=== PATIENT | female | born 1925 | race Caucasian/White ===

== ENCOUNTER 2017-04-29 10:53 | Emergency (ER) | payer MEDICARE, OTHER ==
--- NOTE | ~2017-04-29 | CR127 ---
[facility] A Service [facility] RADIOLOGY TEXT RESULTS PATIENT: VERONICA STYLES LOCATION: SED : [birth year] UNIT #: [id number] AGE: [address]: Aby Robertson PAC SEX: F ORDER DR: [id number] [place] [id number] E MR#: [id number] Acc #: [id number] NAME: VERONICA STYLES : 1925 SEX: F STUDY DATE/TIME: 04/29/2017 11:21 UNIT: SED ROOM: STUDY DESCRIPTION: CR Foot Complete Min 3 View Rt Attending Physician: Ruiz High Ordering Physician: Ruiz High Primary Care Physician: Maritza Grigsby M.D. MEDICAL IMAGING REPORT This report is preliminary unless electronic signature is present. EXAM Right foot. HISTORY Right foot pain after falling this morning. TECHNIQUE Three views of the foot were obtained. FINDINGS Three views of the foot show chronic ossification at the medial malleolus from an old fracture that has healed. There are advanced degenerative changes at the first MTP joint with joint space narrowing. There are mild degenerative changes at the other interphalangeal joints. There is no evidence of fracture or foreign body. No acute bony abnormalities are seen. IMPRESSION Advanced degenerative changes at the first MTP joint. No acute bony abnormalities are seen. No fracture noted. Dictated by... Richie Teague M.D. THIS IS AN ELECTRONICALLY VERIFIED REPORT Richie Teague M.D. at 04/29/2017 3:46 PM RLF/isabel [facility] A Service [facility] RADIOLOGY TEXT RESULTS PATIENT: VERONICA STYLES LOCATION: SED : [birth year] UNIT #: [id number] AGE: [address]: Aby Robertson PAC SEX: F ORDER DR: TD: 04/29/2017 15:17 JOB #: [id number] MEDICAL IMAGING REPORT Page 1 of 1
--- NOTE | ~2017-04-29 | CR141 ---
[facility] A Service [facility] RADIOLOGY TEXT RESULTS PATIENT: VERONICA STYLES LOCATION: SED : [birth year] UNIT #: [id number] AGE: [address]: Aby Robertson SEX: F ORDER DR: [id number] [address] [address] [id number] E MR#: [id number] Acc #: [id number] NAME: VERONICA STYLES : 1925 SEX: F STUDY DATE/TIME: 04/29/2017 11:14 UNIT: SED ROOM: STUDY DESCRIPTION: CR Hand Min 3 Views Lt Attending Physician: Ruiz High Ordering Physician: Ruiz High Primary Care Physician: Maritza Grigsby M.D. MEDICAL IMAGING REPORT This report is preliminary unless electronic signature is present. EXAM Left hand, 3 views, 04/29/17, 1114 hours. CLINICAL HISTORY 89-year-old woman who fell this morning when stepping down the step, and miss judging the step. Hand pain. COMPARISON None. FINDINGS AP, lateral and oblique views are performed. There is a ring on the index finger which the patient could not remove for this exam. There is overall diffuse osteopenia. Distal radius and ulna appear normal. There is osteoarthritis at the intercarpal bones and the first carpometacarpal joint. Metacarpals are intact. There is osteoarthritis at the DIP joints greater than PIP joints. No fracture or dislocation. IMPRESSION There is diffuse generalized osteopenia with osteoarthritis. There is no acute fracture. Dictated by... Radha Waters M.D. THIS IS AN ELECTRONICALLY VERIFIED REPORT Radha Waters M.D. at 04/30/2017 6:57 PM Muna TD: 04/29/2017 15:23 JOB #: [id number] [facility] A Service of [facility] RADIOLOGY TEXT RESULTS PATIENT: VERONICA STYLES LOCATION: [facility] #: [id number] : [birth year] UNIT #: [id number] AGE: [address]: Aby Robertson PAC SEX: F ORDER DR: MEDICAL IMAGING REPORT Page 1 of 1
--- NOTE | ~2017-04-29 | CR20 ---
[facility] A Service of [facility] RADIOLOGY TEXT RESULTS PATIENT: VERONICA STYLES LOCATION: SED : [birth year] UNIT #: [id number] AGE: [address]: Aby Robertson PAC SEX: F ORDER DR: [id number] [place] [id number] E MR#: [id number] Acc #: [id number] NAME: VERONICA STYLES : 1925 SEX: F STUDY DATE/TIME: 04/29/2017 11:21 UNIT: SED ROOM: STUDY DESCRIPTION: CR Ankle Min 3 Views Lt Attending Physician: Ruiz High Ordering Physician: Ruiz High Primary Care Physician: Maritza Grigsby M.D. MEDICAL IMAGING REPORT This report is preliminary unless electronic signature is present. EXAM Left ankle. HISTORY Left ankle pain after falling this morning. TECHNIQUE Three views of the ankle were obtained. FINDINGS Small osteochondral defects are seen at the dome of the talus. This is related to chronic degenerative change. The ankle mortise is symmetric. No fractures are seen. IMPRESSION No fracture noted. Dictated by... Richie Teague M.D. THIS IS AN ELECTRONICALLY VERIFIED REPORT Richie Teague M.D. at 04/29/2017 3:46 PM RLF/isabel TD: 04/29/2017 15:31 JOB #: [id number] MEDICAL IMAGING REPORT [facility] A Service [facility] RADIOLOGY TEXT RESULTS PATIENT: VERONICA STYLES LOCATION: SED : [birth year] UNIT #: [id number] AGE: [address]: Aby Robertson PAC SEX: F ORDER DR: Page 1 of 1
[~2017-04-29 10:53] MED LIST: ACCUPRIL PO; ACCUPRIL10 MG PO; ACETAMINOPHEN650 M3 PO; ALBUTEROL HFA INH; ALPRAZOLAM; ALPRAZOLAM PO; AMIODARONE PO; AMITRYPTYLINE PO; AMOXICILLIN500 M1 PO; ASPIRIN PO; ATENOLOL PO; AUGMENTIN XR; AUGMENTIN875 MG PO; AZITHROMYCIN250 MG PO; CARDIZEM CD PO; CARDIZEM CD180 M1 PO; CELEXA PO; CELEXA20 MG; CELEXA20 MG PO; CIPRO PO; CLARITHROMYCIN500 MG PO; COUMADIN PO; COUMADIN2.5 MG; COUMADIN2.5 MG PO; DILTIAZEM 24HR180 M2 PO; DOXYCYCLINE150 MG PO; ERYTHROMYCIN500 MG PO; FLEXERIL10 MG PO; HCTZ PO; HYDROCHLOROTH12.5 M1 PO; HYDROCHLOROTH12.5 MG PO; KCL PO; KLOR-CON PO; LEVOTHYROXINE50 MC1 PO; LOPRESSOR PO; MACROBID100 M1 PO; MEDI-MECLIZINE25 M1 PO; MEDROL DOSEPAK4 MG PO; METOPROLOL SUCC25 MG PO; MICROZIDE12.5 M1 PO; NAPROSYN250 M1 PO; NAPROSYN375 MG PO; NAPROXEN PO; NORVASC PO; NORVASC10 MG PO; OMEPRAZOLE20 M1 PO; OMNICEF300 M1 PO; PACERONE100 MG; PACERONE100 MG PO; PREMARIN PO; PREMARIN0.3 MG; PREMARIN0.3 MG PO; PROTONIX PO; PYLERA CAPSULE1 CAP PO; PYRIDIUM PO; RYTHMOL PO; SYNTHROID PO; SYNTHROID25 MCG PO; TESSALON200 MG PO; TOPROL XL50 MG PO; VIBRAMYCIN100 M1 PO; VICODIN 5/1 TAB 5/50 PO; ZITHROMAX1 G/PKT PO; ZOCOR PO; ZOCOR10 MG; ZOCOR10 MG PO; ZOFRAN8 MG PO; [UNRECOGNIZED DRUG - REMARK]
== END 2017-04-29 12:37 | disposition home or self-care (01) ==
LOC: SED 10:53
DX: S60.512A Abrasion of left hand, initial encounter (principal); M25.572 Pain in left ankle and joints of left foot; I48.91 Unspecified atrial fibrillation; F41.9 Anxiety disorder, unspecified; K21.9 Gastro-esophageal reflux disease without esophagitis; I10 Essential (primary) hypertension; W18.40XA Slipping, tripping and stumbling without falling, unspecified, initial encounter; Y92.89 Other specified places as the place of occurrence of the external cause
CPT/HCPCS: 73130; 73610; 73630; 99284

== ENCOUNTER 2017-07-02 11:02 | Emergency (ER) | payer MEDICARE, OTHER ==
--- NOTE | ~2017-07-02 | CR72 ---
[facility] A Service of [facility] RADIOLOGY TEXT RESULTS PATIENT: VERONICA STYLES LOCATION: SED : [birth year] UNIT #: [id number] AGE: [address]: Ayde Berger MD SEX: F ORDER DR: [id number] [address] [address] [id number] E MR#: [id number] Acc #: [id number] NAME: VERONICA STYLES : 1925 SEX: F STUDY DATE/TIME: 07/02/2017 11:23 UNIT: SED ROOM: STUDY DESCRIPTION: CR Chest Single View Portable Attending Physician: Ayde Berger M.D. Ordering Physician: Ayde Berger M.D. Primary Care Physician: Maritza Grigsby M.D. MEDICAL IMAGING REPORT This report is preliminary unless electronic signature is present. EXAM Portable chest INDICATION Mid chest pain since this morning. FINDINGS A portable view of the chest was obtained. There are low lung volumes. The right hemidiaphragm is elevated. The lungs appear clear. IMPRESSION No change. No active disease. Elevation of the right hemidiaphragm. Dictated by... Castillo Henderson M.D. THIS IS AN ELECTRONICALLY VERIFIED REPORT Castillo Henderson M.D. at 07/02/2017 2:49 PM PEYTON/ruslan TD: 07/02/2017 14:03 JOB #: [id number] MEDICAL IMAGING REPORT Page 1 of 1
--- NOTE | ~2017-07-02 | EKG ---
PATIENT: VERONICA STYLES UNIT #: [id number] Ventricular Rate: 107 BPM Atrial Rate: 129 BPM QRS Duration: 82 ms Q-T Interval: 306 ms QTC Calculation(Bezet): 408 ms Calculated R [place]: -5 degrees Calculated T [place]: -19 degrees Diagnosis Line: Atrial fibrillation with rapid ventricular Diagnosis Line: response Diagnosis Line: Nonspecific ST abnormality , probably digitalis Diagnosis Line: effect Diagnosis Line: Abnormal ECG Diagnosis Line: When compared with ECG of 31-AUG-2016 09:09, Diagnosis Line: Nonspecific T wave abnormality, improved in Diagnosis Line: Inferior leads Diagnosis Line: Confirmed by ROSALIO HERNANDEZ MD ([id number]) on Diagnosis Line: 07/11/2017 9:55:55 PM INTERPRETING : MELVIN
[2017-07-02] MEDS ORDERED: ASPIRIN81 MG PO (11:20)
[2017-07-02 11:40] LABS: BASOPHIL# 0.1 X10e3 (0-0.3); BASOPHIL% 0.7 % (0-2.5); EOSINOPHIL# 0.1 X10e3 (0-0.7); EOSINOPHIL% 1.4 % (0.0-7.0); HEMATOCRIT 40.9 % (35.0-45.0); HEMOGLOBIN 13.9 gm/dL (12.0-16.0); LYMPHOCYTE# 0.8 X10e3 (1.0-3.5); LYMPHOCYTE% 9.7 % (17.0-45.0); MEAN CELL VOLUME 94.3 FL (83-96); MEAN PLATELET VOLUME 7.5 FL (6.5-11.5); MONOCYTE# 0.8 X10e3 (0-1.0); MONOCYTE% 9.3 % (3.0-12.0); NEUTROPHIL# 6.8 X10e3 (1.5-7.1); NEUTROPHIL% 78.9 % (40-75); PLATELET COUNT 179 X10e3 (140-420); RED BLOOD COUNT 4.34 X10e (3.90-5.30); RED CELL DISTRIBUTION WIDTH 14.3 % (11.0-15.5); WHITE BLOOD COUNT 8.6 X10e3 (4.0-10.5)
[2017-07-02 11:48] LABS: DIFF IND NO
[2017-07-02 11:49] LABS: POC - CKMB 1.2 ng/mL (0.0-7.9); POC - TROPONIN <0.05 ng/mL (<=0.05)
[2017-07-02 11:51] LABS: INR 1.1; PROTHROMBIN TIME (PATIENT) 12.1 SECONDS (9.5-12.4)
[2017-07-02 11:58] LABS: PARTIAL THROMBOPLASTIN TIME 27.2 SECONDS (25.6-38.1)
[2017-07-02 12:00] LABS: ALBUMIN SERUM 4.2 g/dL (3.5-5.0); BILIRUBIN, DIRECT 0.1 mg/dL (0.0-0.2); BILIRUBIN,INDIRECT 0.7 mg/dL (0.0-0.9); BILIRUBIN,TOTAL 0.8 mg/dL (0.2-2.0); BUN/CREATININE RATIO 15.55; CALCIUM SERUM 8.7 mg/dL (8.4-10.2); CREATININE SERUM 0.9 mg/dL (0.6-1.4); GLOM FILT RATE Estimated 56.7 mL/min (>60); MAGNESIUM 2.2 mg/dL (1.6-3.0); POTASSIUM 3.8 mmol/L (3.5-5.1); PROTEIN TOTAL SERUM 7.6 g/dL (6.0-8.3)
[2017-07-02 12:23] LABS: URINE SOURCE CLEAN CATCH
[2017-07-02 12:26] LABS: URINE APPEARANCE CLEAR; URINE BILIRUBIN NEG (NEG); URINE BLOOD NEG (NEG); URINE COLOR YELLOW; URINE GLUCOSE NEG (NORM); URINE KETONE NEG (NEG); URINE LEUKOCYTE ESTERASE TRACE (NEG); URINE NITRATE POS (NEG); URINE PH 7.5 (5-8); URINE PROTEIN NEG (NEG); URINE SPECIFIC GRAVITY 1.015 (1.003-1.035); URINE UROBILINOGEN 0.2 MG/DL (NORM)
[2017-07-02 12:33] LABS: MICRO INDICATED? YES
[2017-07-02 12:35] LABS: CULTURE INDICATED? YES; URINE BACTERIA 3+ (NEG); URINE RBC 0-2 /[HPF] (0-2); URINE SQUAMOUS EPITHELIAL CELL OCCAS /[HPF]
[2017-07-02 13:17] LABS: POC - CKMB 1.1 ng/mL (0.0-7.9); POC - TROPONIN <0.05 ng/mL (<=0.05)
== END 2017-07-02 13:40 | disposition home or self-care (01) ==
LOC: SED 11:02
PROVIDERS: Student in an Organized Health Care Education/Training Program
DX: N39.0 Urinary tract infection, site not specified (principal); R07.0 Pain in throat; R07.89 Other chest pain; Z98.890 Other specified postprocedural states; Z88.8 Allergy status to other drugs, medicaments and biological substances; Z88.5 Allergy status to narcotic agent; Z88.1 Allergy status to other antibiotic agents; Z91.041 Radiographic dye allergy status
CPT/HCPCS: 36415; 71010; 80048; 80076; 81003; 82553; 83735; 83880; 84484; 85025; 85610; 85730; 87086; 87088; 87186; 93005; 96374; 96375; 99285; C9113; J2405